=== PATIENT | male | born 1965 | race Caucasian/White ===

== ENCOUNTER 2022-01-08 09:29 | Emergency (ER) | payer MEDICARE ==
[~2022-01-08 09:29] MED LIST: KEFLEX CAP 500500 MG PO; NADOLOL PO; NORCO 7.5-3251 EACH PO; PERCOCET 5/325 T1 EA PO
[2022-01-08] MEDS ORDERED: CEPHALEXIN500 M1 PO (10:30)
== END 2022-01-08 10:25 | disposition home or self-care (01) ==
LOC: ER1 09:29
DX: S51.811A Laceration without foreign body of right forearm, initial encounter (principal); I10 Essential (primary) hypertension; Z23 Encounter for immunization; Z87.891 Personal history of nicotine dependence; X58.XXXA Exposure to other specified factors, initial encounter; Y92.009 Unspecified place in unspecified non-institutional (private) residence as the place of occurrence of the external cause
CPT/HCPCS: 12001; 90471; 90715; 99282

== ENCOUNTER 2022-02-09 11:12 | Emergency (ER) | payer MEDICARE ==
[~2022-02-09 11:12] MED LIST changes: +CEPHALEXIN500 M1 PO
[2022-02-09 12:39] LABS: HEMOGLOBIN 16.3 gm/dl (14.0-17.5); RED BLOOD COUNT 4.5 M/UL (4.20-5.50); WHITE BLOOD COUNT 3.5 K/UL (4.5-11.0)
[2022-02-09 13:03] LABS: BUN/CREATININE RATIO 12 (0-10)
[2022-02-09] MEDS ORDERED: ZOFRAN 4 MG TAB4 MG PO (16:22)
== END 2022-02-09 16:27 | disposition home or self-care (01) ==
LOC: ER1 11:12
PROVIDERS: Physician Assistant Medical
DX: R06.02 Shortness of breath (principal); R11.10 Vomiting, unspecified; R19.7 Diarrhea, unspecified; I10 Essential (primary) hypertension; Z87.442 Personal history of urinary calculi; Z20.822 Contact with and (suspected) exposure to COVID-19
CPT/HCPCS: 71045; 80053; 81001; 82550; 82553; 84484; 85025; 85379; 93005; 99285; U0002

== ENCOUNTER 2022-02-13 09:08 | Emergency (ER) | payer MEDICARE ==
[~2022-02-13 09:08] MED LIST changes: +ZOFRAN 4 MG TAB4 MG PO
[2022-02-13] MEDS ORDERED: BACTRIM DS TAB1 EACH PO (10:16)
== END 2022-02-13 10:29 | disposition home or self-care (01) ==
LOC: ER1 09:08
DX: L02.31 Cutaneous abscess of buttock (principal); I10 Essential (primary) hypertension
CPT/HCPCS: 10060; 99283